=== PATIENT | male | born 1965 | race Caucasian/White ===

== ENCOUNTER 2019-05-03 01:39 | Emergency (ER) | payer SELFPAY ==
[~2019-05-03] VITALS: Ht 165.1 cm; Wt 95.3 kg
--- NOTE | 2019-05-03 01:39 | NUR ---
PT BIB [facility], PREBOOK. TAKEN TO CHAIR E
[2019-05-03 01:47] VITALS: BP 119/74
--- NOTE | 2019-05-03 01:48 | NUR ---
Dr. Lopez examining patient.
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
[2019-05-03 01:55] VITALS: BP 119/74
--- NOTE | 2019-05-03 01:55 | NUR ---
PATIENT [facility]; EXAMINED BY DR. DUFF. PATIENT MEDICALLY CLEARED AND RELEASED IN CUSTODY IN STABLE CONDITION. ORIGINAL PRE-BOOK FORM GIVEN TO OFFICER [facility] #[id number].
== END 2019-05-03 01:55 ==
LOC: MED 01:39
DX: Z02.89 Encounter for other administrative examinations (principal); Z72.89 Other problems related to lifestyle; E11.9 Type 2 diabetes mellitus without complications; Z88.0 Allergy status to penicillin; Z88.8 Allergy status to other drugs, medicaments and biological substances
CPT/HCPCS: 99283